=== PATIENT | female | born 1980 | race Caucasian/White ===

== ENCOUNTER 2016-04-18 22:24 | Emergency (ER) | payer SELFPAY ==
[2016-04-18 22:38] VITALS: BP 126/87
[2016-04-18] MEDS ORDERED: Acetaminophen/oxyCODONE 325-5 MG Tab PO ONE (23:02)
--- NOTE | 2016-04-18 23:30 | EDM.PDOC ---
ED HPI Trauma - General Chief Complaint: Lower Extremity Injury/Pain Stated Complaint: LEFT KNEE INJURY Time Seen by Provider: 04/18/16 22:34 Source: Reports: Patient History Limitations: Reports: No limitations - History of Present Illness INITIAL COMMENTS - FREE TEXT/NARRATIVE: this is a 35-year-old female. She apparently was walking at work and she had sudden pain in her left knee area it felt like the pain that she had prior to surgery on that same knee back in 2014. She says she believes she had a lateral collateral ligament injury and they pulled the muscle up from her calf to take its place. The knee does not particularly feel unstable but every time she walks she has pain on the lateral side of the calf and the lateral side of the knee and also around the kneecap. There is some slight swelling noted of the knee. She denies any trauma to the knee denies any twisting movements of the knee. She was just walking and developed pain. Allergies/ADRs: Allergies morphine Allergy (Verified 04/18/16 22:39) Itching mushroom Allergy (Verified 04/18/16 22:39) Indigestion Penicillins Allergy (Verified 04/18/16 22:39) Hives Past Medical History Other HEENT History: wears glasses Respiratory History: Reports: Asthma, Bronchitis, recurrent Gastrointestinal History: Reports: GERD, Hepatitis Musculoskeletal History: Reports: Other (see below) Other Musculoskeletal History: carpal tunnel - Infectious Disease History Infectious Disease History: Reports: Hepatitis B, Hepatitis C - Past Surgical History Female Surgical History: Reports: Breast biopsy, Other (see below) Other Female Surgeries/Procedures: fibroid removal of breasts in 2008 Musculoskeletal Surgical History: Reports: Other (see below) Other Musculoskeletal Surgeries/Procedures:: knee surgery Social & Family History - Family History Family Medical History: Noncontributory - Tobacco Use Smoking Status *Q: Current Every Day Smoker Years of Tobacco use: 22 Packs/Tins Daily: 1 Used Tobacco, but Quit: No Second Hand Smoke Exposure: No - Caffeine Use Caffeine Use: Reports: Coffee, Energy drinks, Tea - Recreational Drug Use Recreational Drug Use: No - Living Situation & Occupation Occupation: employed Review of Systems - Review of Systems Review Of Systems: See Below Constitutional: Denies: chills, fever Eyes: Reports: no symptoms Ears: Reports: no symptoms Nose: Reports: no symptoms Mouth/Throat: Reports: no symptoms Respiratory: Reports: no symptoms Cardiovascular: Reports: no symptoms GI/Abdominal: Reports: No symptoms Genitourinary: Reports: no symptoms Musculoskeletal: Reports: other (as per history of present illness) Skin: Reports: no symptoms Neurological: Reports: no symptoms Psychiatric: Reports: no symptoms Trauma Exam - Physical Exam Exam: See Below Exam Limited By: No limitations General Appearance: Reports: alert, WD/WN, no apparent distress Head: Reports: normocephalic Eyes: bilateral eye: normal inspection Ears: Reports: normal external exam Nose: Reports: normal inspection Throat/Mouth: Reports: Normal inspection, Normal lips, Normal voice Neck: Reports: full range of motion Respiratory Exam: Reports: no respiratory distress, lungs clear, normal breath sounds Cardiovascular: Reports: regular rate, rhythm, no murmur GI/Abdominal: Reports: soft Back: Reports: full range of motion Extremities: Reports: other (left knee appears to have a slight effusion, there is tenderness with movement of the patella noted, she also has some mild lateral knee tenderness on palpation, the joint line however on the medial and lateral side is nontender, she's got a negative Quin's and negative drawer sign, there is some soreness on the lateral calf as well. Neurovascular is intact distally there is no other extremity symptoms.) Neurologic: Reports: no motor/sensory deficits, alert, normal mood/affect, oriented x 3 Skin: Reports: Normal color, Warm/dry Course - Vital Signs Last Recorded V/S: Last Vital Signs Temp Pulse 78 04/18/16 22:31 Resp 20 04/18/16 22:31 BP 126/87 04/18/16 22:31 Pulse Ox 99 04/18/16 22:31 - Orders/Labs/Meds Orders: Active Orders 24 hr Category Date Time Status Knee 3V Lt [CR] Stat Exams 04/18/16 23:01 Taken Meds: Medications Discontinued Medications Generic Name Dose Route Start Last Admin Trade Name Freq PRN Reason Stop Dose Admin Oxycodone/Acetaminophen 1 tab 04/18/16 23:02 04/18/16 23:07 Percocet 325-5 Mg PO 04/18/16 23:03 1 tab ONETIME ONE Administration - Radiology Interpretation Free Text/Narrative:: x-ray of the left knee did not show any acute bony abnormalities, it does look like a patellar is kind of all set from its normal groove that it travels. - Re-Assessments/Exams Free Text/Narrative Re-Assessment/Exam: 04/18/16 23:38 I spoke to the patient regarding the x-ray results. We will give her a prescription for a hinged knee brace for that left knee that she can get it at [facility], I would give her a name of physician to followup with for evaluation of her knee since she really needs to have a MRI of the knee if the symptoms continue. 04/19/16 00:04 I spoke to the patient about getting the hinged knee brace as soon as possible this could have a patellar opening as well to help at patellar glide in the proper position. I also gave her a six-inch Wily wrap to use until she gets the knee brace. Departure - Departure Time of Disposition: 00:05 Disposition: Home, Self-Care 01 Condition: good Clinical Impression: Strain of left knee Qualifiers: Encounter type: initial encounter Qualified Code(s): S86.912A - Strain of unspecified muscle(s) and tendon(s) at lower leg level, left leg, initial encounter Left knee pain Qualifiers: Chronicity: acute Qualified Code(s): M25.562 - Pain in left knee Referrals: Mary Ann Flowers PA-C [Physician Police Magistrate] - Forms: ED Department Discharge Additional Instructions: go to [facility] here in town to get the left knee hinged brace, where it when you 're at work and being active but take it off at night time and at home, followup with a family physician as suggested for further evaluation of your left knee or possible referral to a employment specialist/program manager, return to the ER if needed - My Orders Last 24 Hours: My Active Orders 04/18/16 23:01 Knee 3V Lt [CR] Stat - Assessment/Plan Last 24 Hours: My Active Orders 04/18/16 23:01 Knee 3V Lt [CR] Stat
--- NOTE | 2016-04-20 07:14 | CR ---
Left knee: Three portable views of the left knee were obtained. Comparison: No previous study. Calcification is seen within the soft tissues off the lateral patella. This presumably is dystrophic and due to old injury. Medial and lateral joint compartments appear to be fairly well-maintained but not seen well in profile. Patellofemoral joint appears within normal limits. Lateral view is less than optimal but no gross findings of joint effusion are seen. No acute fracture or other abnormality is seen. Impression: 1. Slightly suboptimal study due to positioning and portable technique. 2. Small dystrophic calcification as noted above felt to be incidental. 3. Nothing acute is definitely appreciated. Diagnostic code #2
== END 2016-04-19 00:25 | disposition home or self-care (01) ==
LOC: JD.ED 22:24
DX: S86.912A Strain of unspecified muscle(s) and tendon(s) at lower leg level, left leg, initial encounter (principal); J45.909 Unspecified asthma, uncomplicated; K21.9 Gastro-esophageal reflux disease without esophagitis; F17.210 Nicotine dependence, cigarettes, uncomplicated; Z88.5 Allergy status to narcotic agent; Z88.0 Allergy status to penicillin; Z91.09 Other allergy status, other than to drugs and biological substances; Y99.0 Civilian activity done for income or pay
CPT/HCPCS: 73562; 99283; A9270